=== PATIENT | female | born 1965 | race Two or more races ===

== ENCOUNTER 2022-06-29 11:41 | Emergency (ER) | payer OTHER ==
[2022-06-29 11:49] VITALS: BP 139/77; PULSE 76; RESP 18; TEMP 98.1; BMI 31.9
[2022-06-29] MEDS ORDERED: LIDOCAINE 5% TOPICAL PATCH TP ONE (12:58)
[2022-06-29] MEDS ORDERED: LIDOCAINE 5% TOPICAL PATCH ONE (13:00)
[2022-06-29] MEDS ORDERED: LIDOCAINE PATCH REMOVAL MC SCH (22:00)
== END 2022-06-29 13:04 | disposition home or self-care (01) ==
LOC: JER 11:41 → JERFT 11:41
DX: M79.7 Fibromyalgia (principal)
CPT/HCPCS: 99283-25